=== PATIENT | male | born 1995 | race Caucasian/White ===

== ENCOUNTER 2018-03-26 17:56 | Emergency (ER) | payer BC, OTHER ==
[~2018-03-26] VITALS: Ht 162.6 cm; Wt 79.5 kg
[2018-03-26 18:00] VITALS: BP 132/87; PULSE 77; TEMP 98.1
== END 2018-03-26 19:11 | disposition home or self-care (01) ==
LOC: COL.ER 17:56
DX: S09.90XA Unspecified injury of head, initial encounter (principal); W22.8XXA Striking against or struck by other objects, initial encounter; W18.39XA Other fall on same level, initial encounter